=== PATIENT | male | born 1985 | race Caucasian/White ===

== ENCOUNTER 2020-12-04 15:15 | Emergency (ER) | payer MEDICAID, SELFPAY ==
[2020-12-04 15:16] VITALS: BP 120/96; PULSE 96; RESP 16; TEMP 36.7; O2SAT 97; BMI 38.9
--- NOTE | 2020-12-04 15:38 | ED.VISSUMM ---
- ER Visit Summary Date of Service: 12/04/20 Chief Complaint: [Depression and suicidal ideation] History of Present Illness: The patient is a 35 M [presents to the emergency department after being pink slipped by police. Patient apparently went to one of the local urgent cares stating that he was depressed and suicidal. Patient was brought to the emergency department for evaluation. Patient states that he has been homeless for the last 5 years. Patient states that he is from the [facility] but just travels from place to place. Patient does not have any picture ID so he can stay in shelters. Patient states that he has thoughts and plan to overdose on heroin and fentanyl. Patient states that he has not used heroin or fentanyl for over 5 years. He denies alcohol use. He denies recent illness. He denies auditory or visual hallucinations. He denies homicidal ideation. Patient has had prior attempts at suicide.] Physical Examination: [HEENT-PERRLA, EOMI. Cranial nerves II through XII grossly intact. TMs clear. Mucous membranes moist. No adenopathy. Cardiovascular-regular rate and rhythm without murmur or ectopy Lungs-clear to auscultation, chest wall stable without crepitus or subcu emphysema Abdomen-normoactive bowel sounds, soft, nontender, no rebound or rigidity, no peritoneal signs. Extremities-intact ?4, normal range of motion, normal pulses, atraumatic] Test Results: [Labs and toxicology screen ordered and pending.] Emergency Department Course and Treatment: [Patient was given Ativan 1 mg p.o. for anxiety.] Treatment Plan: [Plan will be evaluated by crisis and care of patient turned over to evening physician awaiting evaluation by crisis and final disposition.] Disposition: [Pending] Impression: [Depression Suicidal ideation] This note was generated with [employer] dictation software. It may contain incorrect words, spelling, and punctuation that were not noted in review of the chart prior to signing ED Disposition - Plan for ED Patient: Referrals: NOT,DEFINED [Primary Care Provider] -
[2020-12-04] MEDS: LORazepam 1 MG Tablet PO (15:58)
[2020-12-04 16:06] LABS: Absolute Lymphocyte Count 3.14 X10^3/uL (0.83-4.51); Basophil# 0.07 X10^3/uL; Basophil% 0.9 % (0-1); Eosinophil# 0.19 X10^3/uL; Eosinophils% 2.4 % (0-5); Hematocrit 47.9 % (40-54); Hemoglobin 15.9 g/dL (13.0-16.5); Lymphocyte # 3.14 X10^3/ul (4.0); Lymphocyte % 39.9 % (19-41); Mean Corp Hgb Conc 33.2 g/dL (32-36); Mean Corpuscular Hgb 28.5 pg (27.0-32.0); Mean Platelet Vol. 10.3 fl (6.2-12.0); Monocyte# 0.44 X10^3/uL; Monocyte% 5.6 % (0-10); NRBC Flagged by Analyzer 0 % (0-5); Neutrophil % 50.9 % (47-70); Platelet Count 262 K/mm3 (150-450); RBC Distribution Width CV 12.9 % (11.6-14.6); RBC Distribution Width SD 40.1 fl (35.1-43.9); Red Blood Count 5.57 M/mm3 (4.6-6.2); White Blood Count 7.9 K/mm3 (4.4-11.0)
[2020-12-04 16:17] LABS: Anion Gap 6 (5-15); BUN 15 mg/dL (7-18); BUN/Creat Ratio 14.3 RATIO (10-20); Calcium,Total 9.2 mg/dL (8.5-10.1); Chloride 109 mmol/L (98-107); Creatinine, Serum 1.05 mg/dL (0.70-1.30); EST Glomerular Filtration Rate 86 mL/min (>60); Est Glom Filt Rate - Afr Amer 104 mL/min (>60); Estimated Creatinine Clearance 92.68 ml/min; Glucose 99 mg/dL (74-106); Potassium 4.2 mmol/L (3.5-5.1); Sodium Level 140 mmol/L (136-145)
[2020-12-04 16:18] LABS: Amphetamine Urine VISTA NEGATIVE (<1000 ng/mL); Barbiturate Urine VISTA NEGATIVE (< 200 ng/mL); Benzodiazepine Urine VISTA NEGATIVE (< 200 ng/mL); Cocaine Urine VISTA NEGATIVE (< 300 ng/mL); Ecstacy Urine VISTA NEGATIVE (< 500 ng/mL); Methadone Urine VISTA NEGATIVE (< 300 ng/mL); PCP Urine VISTA NEGATIVE (< 25 ng/mL); THC Urine VISTA NEGATIVE (< 50 ng/mL); Vista UDS pH Range 7
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
[2020-12-04 16:35] LABS: Alcohol, Blood (Medical)-Serum < 3.0 mg/dL
[2020-12-04 16:39] VITALS: BP 136/68; PULSE 63; RESP 16; TEMP 36.8; O2SAT 98
--- NOTE | 2020-12-04 17:33 | CM.ED ---
Social Work Telephone call to [facility], intake. Referral placed. Clinical information faxed. This administrator social welfare able to confirm open beds and that [facility] is in-network with patient insurance. Will continue to follow. Gildardo PINEDA, SENAIT
--- NOTE | 2020-12-04 18:13 | CM.ED ---
Social Work Telephone call from [facility]. Patient has been accepted by Leny Rodriguez [facility]. Patient to admit to [address] [place] [address] and nurse to call report to [phone]. Medical team and patient updated on above. [place] [facility] faxed. Gildardo Barcenas [employer], SENAIT
--- NOTE | 2020-12-04 18:20 | NURSING ---
CALLED [facility]. SAID IT WOULD BE TOMORROW. ASKED TO CALL AROUND FOR A RIDE SOONER. THEY WILL CALL BACK
--- NOTE | 2020-12-04 18:55 | ED.RN ---
TRANSPORT UNABLE TO ARRIVE PRIOR TO 0300 12/05/20
[2020-12-04 19:01] VITALS: RESP 14
[2020-12-04 20:12] VITALS: RESP 14
[2020-12-05] VITALS: BP 132/89; PULSE 73; RESP 14; O2SAT 97
== END 2020-12-05 00:20 ==
LOC: ED 16:04
PROVIDERS: Emergency Provider Emergency Medicine
DX: F32.9 Major depressive disorder, single episode, unspecified (principal); R45.851 Suicidal ideations; Z59.0 Homelessness
CPT/HCPCS: 36415; 80048; 80307; 82077; 85025; 87426; 99284